=== PATIENT | male | born 1990 | race African-American/Black ===

== ENCOUNTER 2020-06-29 02:51 | Inpatient (IN) ==
[2020-06-29] MEDS ORDERED: SODIUM CHLORIDE 0.9% 500 ML IV STA (03:11)
[2020-06-29] MEDS ORDERED: ONDANSETRON 4 MG/2 ML VIAL IV STA (03:11)
[2020-06-29] MEDS ORDERED: KETOROLAC 30 MG/1 ML VIAL IV STA (03:11)
[2020-06-29 04:05] LABS: Basophils # 0.1 10*3/uL (0.0-0.2); Basophils % 0.4 % (0.0-0.8); Eosinophils # 0.2 10*3/uL (0.0-0.87); Eosinophils % 1.6 % (0.00-10.9); Hematocrit 33.4 VOL% (42.0-52.0); Hemoglobin 10.4 GM/DL (14.0-18.0); Immature Granulocytes % 0.3 %; Immature Granulocytes Absolute 0.04 #; Lymphocytes # 2.4 10*3/uL (1.4-4.0); Lymphocytes % 19.2 % (21.2-54.2); Mean Corpuscular HGB Conc 31.1 GM/DL (32-36); Mean Corpuscular Volume 67.2 FL (87-102); Mean Platelet Volume 9.8 FL (9.6-12.0); Monocytes % 6.9 % (1.7-12.7); Neutrophils % 71.6 % (38.7-73.9); Platelet Count 596 T/CUMM (130-400); Red Blood Count 4.97 MC/CUMM (3.8-5.5); Red Cell Distribution Width 19.4 % (9.3-17.3); White Blood Count 12.7 T/CUMM (4-12)
[2020-06-29 04:21] LABS: Alanine Aminotransferase 24 U/L (16-61); Alkaline Phosphatase 182 U/L (45-117); Amylase 14 U/L (25-115); Aspartate Amino Transferase 20 U/L (0-37); Bilirubin,Total < 0.39 MG/DL (0.2-1.0); Blood Urea Nitrogen 8 MG/DL (7-18); Carbon Dioxide 27 MMOL/L (21-32); Estimated Glom Filtration Rate 157 ML/MIN; Glucose 118 MG/DL (74-106); Potassium 3.8 MMOL/L (3.5-5.1); Sodium 136 MMOL/L (136-145); Troponin I < 0.015 NG/ML (0.00-0.045)
[2020-06-29 05:10] LABS: Amorphous Crystals,Urine Few /HPF (Few); Bilirubin,Urine Negative (Negative); Blood, Urine Moderate mg/dL (Negative); Glucose,Urine (UA) Negative (Negative); Ketones,Urine Negative (Negative); Mucus,Urine Occasional /LPF (Occasional); Nitrite,Urine Negative (Negative); Protein,Urine Negative; RBC,Urine 118 /HPF (0-4); Urine Appearance CLOUDY (Clear); Urine Color Yellow (Yellow); Urine Specific Gravity 1.015 (1.001-1.035)
[2020-06-29 05:12] LABS: Barbiturates Screen,Urine Positive (Negative); Benzodiazepines Screen,Urine Negative (Negative); Cannabinoid Screen,Urine Negative (Negative); Opiate Screen,Urine Negative (Negative); Phencyclidine Screen,Urine Negative (Negative)
[2020-06-29] MEDS ORDERED: hydrALAZINE 20 MG/1 ML VIAL ONE (05:35)
[2020-06-29] MEDS ORDERED: hydrALAZINE 20 MG/1 ML VIAL IV STA (05:36)
[2020-06-29] MEDS ORDERED: LABETALOL 20 MG/4 ML SYRINGE IV STA (05:45)
[2020-06-29] MEDS ORDERED: METHOCARBAMOL 1,000 MG/10 ML VIAL IV STA (06:04)
[2020-06-29] MEDS ORDERED: VANCOMYCIN INJ 1,000 MG in SODIUM CHLORIDE 0.9% 250 ML IV STA (06:57)
[2020-06-29] MEDS ORDERED: VANCOMYCIN 1,000 MG VIAL ONE (07:01)
[2020-06-29] MEDS ORDERED: ONDANSETRON 4 MG TABLET PO PRN (09:04)
[2020-06-29] MEDS ORDERED: DEXTROSE 50% 25 GM/50 ML VIAL IV PRN (09:05)
[2020-06-29] MEDS ORDERED: GLUCAGON 1 MG VIAL IM PRN (09:05)
[2020-06-29] MEDS ORDERED: ALBUTEROL/IPRATROPIUM 3 ML NEB RESP TX PRN (09:11)
[2020-06-29] MEDS: ENOXAPARIN 40 MG/0.4 ML SYRINGE SUBCUT SCH (09:44)
[2020-06-29 09:58] LABS: Immunoglobulin A 551 MG/DL (70-400); Immunoglobulin G 2020 MG/DL (700-1600); Immunoglobulin M 96 MG/DL (40-230)
[2020-06-29 10:24] LABS: HIV Antigen/Antibody Result Nonreactive (Nonreactive)
[2020-06-29] MEDS: MEROPENEM 500 MG in SODIUM CHLORIDE 0.9% 100 ML IV SCH ×2 (13:29→17:50)
[2020-06-29] MEDS: VANCOMYCIN INJ 1,000 MG in SODIUM CHLORIDE 0.9% 250 ML IV SCH (18:42)
[2020-06-29] MEDS: BUDESONIDE/FORMOTEROL 80-4.5 INHALER 6.9 GM INH SCH (21:19)
[2020-06-29] MEDS: DOCUSATE SODIUM 100 MG CAPSULE PO SCH (21:19)
[2020-06-30] MEDS: MEROPENEM 500 MG in SODIUM CHLORIDE 0.9% 100 ML IV SCH ×5 (00:20→23:45)
[2020-06-30 06:07] LABS: Basophils % 0.5 % (0.0-0.8); Eosinophils # 0.4 10*3/uL (0.0-0.87); Eosinophils % 4.4 % (0.00-10.9); Hematocrit 32.1 VOL% (42.0-52.0); Hemoglobin 9.9 GM/DL (14.0-18.0); Immature Granulocytes % 0.6 %; Immature Granulocytes Absolute 0.05 #; Lymphocytes # 2.2 10*3/uL (1.4-4.0); Lymphocytes % 24.9 % (21.2-54.2); Mean Corpuscular HGB Conc 30.8 GM/DL (32-36); Mean Corpuscular Volume 68.2 FL (87-102); Mean Platelet Volume 9.9 FL (9.6-12.0); Monocytes % 6.2 % (1.7-12.7); Neutrophils % 63.4 % (38.7-73.9); Platelet Count 560 T/CUMM (130-400); Red Blood Count 4.71 MC/CUMM (3.8-5.5); Red Cell Distribution Width 18.7 % (9.3-17.3); White Blood Count 8.7 T/CUMM (4-12)
[2020-06-30 06:41] LABS: Alanine Aminotransferase 17 U/L (16-61); Albumin 1.9 G/DL (3.4-5.0); Alkaline Phosphatase 149 U/L (45-117); Aspartate Amino Transferase 13 U/L (0-37); Bilirubin,Direct < 0.100 MG/DL (0.0-0.20); Bilirubin,Indirect 0.3 MG/DL (0.0-1.0); Blood Urea Nitrogen 9 MG/DL (7-18); Calcium 9.7 MG/DL (8.5-10.1); Carbon Dioxide 27 MMOL/L (21-32); Estimated Glom Filtration Rate 157 ML/MIN; Glucose 87 MG/DL (74-106); HDL Cholesterol 27 MG/DL (40-60); Osmolality,Calculated 272.7 MOS/KG (273-304); Potassium 3.9 MMOL/L (3.5-5.1); Risk Ratio 3.41; Sodium 138 MMOL/L (136-145); Total Protein 8.2 G/DL (6.4-8.3); Triglycerides 57 MG/DL (2-150); VLDL CHOLESTEROL 11.4 MG/DL
[2020-06-30] MEDS: ENOXAPARIN 40 MG/0.4 ML SYRINGE SUBCUT SCH (09:47)
[2020-06-30] MEDS: HYDROmorphone 2 MG/1 ML VIAL IV PRN ×4 (09:48→23:41)
[2020-06-30] MEDS: PANTOPRAZOLE 40 MG TABLET PO SCH (09:48)
[2020-06-30] MEDS: DOCUSATE SODIUM 100 MG CAPSULE PO SCH ×2 (09:49→21:08)
[2020-06-30] MEDS: VANCOMYCIN INJ 1,000 MG in SODIUM CHLORIDE 0.9% 250 ML IV SCH ×2 (11:26→18:32)
[2020-06-30] MEDS: BUDESONIDE/FORMOTEROL 80-4.5 INHALER 6.9 GM INH SCH ×3 (17:13→21:12)
[2020-07-01] MEDS: HYDROmorphone 2 MG/1 ML VIAL IV PRN ×5 (03:53→22:53)
[2020-07-01] MEDS: MEROPENEM 500 MG in SODIUM CHLORIDE 0.9% 100 ML IV SCH ×4 (05:17→23:45)
[2020-07-01] MEDS: VANCOMYCIN INJ 1,000 MG in SODIUM CHLORIDE 0.9% 250 ML IV SCH ×2 (06:02→18:44)
[2020-07-01 06:42] LABS: Basophils % 0.3 % (0.0-0.8); Eosinophils # 0.4 10*3/uL (0.0-0.87); Eosinophils % 4.6 % (0.00-10.9); Hemoglobin 9.9 GM/DL (14.0-18.0); Immature Granulocytes % 0.3 %; Immature Granulocytes Absolute 0.03 #; Lymphocytes # 2.6 10*3/uL (1.4-4.0); Lymphocytes % 27.5 % (21.2-54.2); Mean Corpuscular HGB Conc 30.9 GM/DL (32-36); Mean Corpuscular Volume 68.2 FL (87-102); Mean Platelet Volume 9.4 FL (9.6-12.0); Monocytes % 7.2 % (1.7-12.7); Neutrophils % 60.1 % (38.7-73.9); Platelet Count 567 T/CUMM (130-400); Red Blood Count 4.69 MC/CUMM (3.8-5.5); White Blood Count 9.6 T/CUMM (4-12)
[2020-07-01 06:58] LABS: Calcium 9.6 MG/DL (8.5-10.1); Osmolality,Calculated 266.2 MOS/KG (273-304); Potassium 3.7 MMOL/L (3.5-5.1)
[2020-07-01] MEDS: PANTOPRAZOLE 40 MG TABLET PO SCH (09:48)
[2020-07-01] MEDS: ENOXAPARIN 40 MG/0.4 ML SYRINGE SUBCUT SCH (09:48)
[2020-07-01] MEDS: DOCUSATE SODIUM 100 MG CAPSULE PO SCH ×2 (09:49→21:34)
[2020-07-01] MEDS ORDERED: INFLUENZA VIRUS VACCINE 0.5 ML SYRINGE IM ONE (12:31)
[2020-07-01] MEDS: BUDESONIDE/FORMOTEROL 80-4.5 INHALER 6.9 GM INH SCH ×2 (17:26→21:34)
[2020-07-02] MEDS: VANCOMYCIN INJ 1,000 MG in SODIUM CHLORIDE 0.9% 250 ML IV SCH ×3 (02:27→20:54)
[2020-07-02] MEDS: HYDROmorphone 2 MG/1 ML VIAL IV PRN ×4 (03:48→20:57)
[2020-07-02] MEDS: MEROPENEM 500 MG in SODIUM CHLORIDE 0.9% 100 ML IV SCH ×4 (05:08→23:08)
[2020-07-02 06:22] LABS: Basophils % 0.4 % (0.0-0.8); Eosinophils # 0.5 10*3/uL (0.0-0.87); Eosinophils % 5.9 % (0.00-10.9); Hematocrit 31.3 VOL% (42.0-52.0); Hemoglobin 9.7 GM/DL (14.0-18.0); Immature Granulocytes % 0.5 %; Immature Granulocytes Absolute 0.04 #; Lymphocytes # 2.4 10*3/uL (1.4-4.0); Lymphocytes % 31.4 % (21.2-54.2); Mean Corpuscular Volume 68.2 FL (87-102); Mean Platelet Volume 9.5 FL (9.6-12.0); Monocytes % 7.6 % (1.7-12.7); Neutrophils % 54.2 % (38.7-73.9); Platelet Count 595 T/CUMM (130-400); Red Blood Count 4.59 MC/CUMM (3.8-5.5); Red Cell Distribution Width 18.8 % (9.3-17.3); White Blood Count 7.7 T/CUMM (4-12)
[2020-07-02 06:33] LABS: Calcium 9.7 MG/DL (8.5-10.1)
[2020-07-02 07:03] LABS: Immunoglobulin A (Chem) 551 MG/DL (70-400); Immunoglobulin G (Chem) 2020 MG/DL (700-1600); Immunoglobulin M (Chem) 96 MG/DL (40-230)
[2020-07-02 07:04] LABS: Anisocytosis 1+; Hypochromasia 2+; Microcytosis 1+; Target Cells Slight
[2020-07-02 07:05] LABS: Platelet Estimate Increased
[2020-07-02] MEDS: BUDESONIDE/FORMOTEROL 80-4.5 INHALER 6.9 GM INH SCH ×2 (08:18→23:07)
[2020-07-02] MEDS: PANTOPRAZOLE 40 MG TABLET PO SCH (08:18)
[2020-07-02] MEDS: DOCUSATE SODIUM 100 MG CAPSULE PO SCH ×2 (08:18→20:55)
[2020-07-02] MEDS ORDERED: DIAZEPAM 5 MG TABLET PO ONE (09:38)
[2020-07-02 10:22] LABS: INR 1.2; PT Patient Result 12.3 SECS (9.8-11.9)
[2020-07-02] MEDS: ENOXAPARIN 40 MG/0.4 ML SYRINGE SUBCUT SCH (10:31)
[2020-07-02] MEDS ORDERED: LIDOCAINE 2% 5 ML VIAL ONE (11:59)
[2020-07-02] MEDS ORDERED: propofoL 200 MG/20 ML VIAL IV ONE (11:59)
[2020-07-02] MEDS: SODIUM CHLORIDE 0.9% 1,000 ML IV SCH (16:56)
[2020-07-03] MEDS: HYDROmorphone 2 MG/1 ML VIAL IV PRN ×6 (00:33→22:35)
[2020-07-03] MEDS: VANCOMYCIN INJ 1,000 MG in SODIUM CHLORIDE 0.9% 250 ML IV SCH ×3 (03:08→22:17)
[2020-07-03] MEDS: MEROPENEM 500 MG in SODIUM CHLORIDE 0.9% 100 ML IV SCH ×4 (05:16→17:13)
[2020-07-03] MEDS: DOCUSATE SODIUM 100 MG CAPSULE PO SCH ×2 (08:05→22:18)
[2020-07-03] MEDS: ENOXAPARIN 40 MG/0.4 ML SYRINGE SUBCUT SCH ×2 (08:06→09:33)
[2020-07-03] MEDS: PANTOPRAZOLE 40 MG TABLET PO SCH (08:06)
[2020-07-03] MEDS: BUDESONIDE/FORMOTEROL 80-4.5 INHALER 6.9 GM INH SCH ×2 (08:08→22:37)
[2020-07-03] MEDS: SODIUM CHLORIDE 0.9% 1,000 ML IV SCH (11:17)
[2020-07-04] MEDS: MEROPENEM 500 MG in SODIUM CHLORIDE 0.9% 100 ML IV SCH ×4 (00:39→18:29)
[2020-07-04] MEDS: HYDROmorphone 2 MG/1 ML VIAL IV PRN ×5 (03:12→20:47)
[2020-07-04] MEDS: VANCOMYCIN INJ 1,000 MG in SODIUM CHLORIDE 0.9% 250 ML IV SCH ×3 (03:13→20:41)
[2020-07-04 06:19] LABS: Basophils # 0.1 10*3/uL (0.0-0.2); Basophils % 0.7 % (0.0-0.8); Eosinophils # 0.4 10*3/uL (0.0-0.87); Eosinophils % 4.7 % (0.00-10.9); Hematocrit 33.9 VOL% (42.0-52.0); Hemoglobin 10.2 GM/DL (14.0-18.0); Immature Granulocytes % 0.7 %; Immature Granulocytes Absolute 0.06 #; Lymphocytes # 2.5 10*3/uL (1.4-4.0); Lymphocytes % 27.6 % (21.2-54.2); Mean Corpuscular HGB Conc 30.1 GM/DL (32-36); Mean Corpuscular Volume 68.9 FL (87-102); Mean Platelet Volume 9.3 FL (9.6-12.0); Monocytes % 8.8 % (1.7-12.7); Neutrophils % 57.5 % (38.7-73.9); Platelet Count 688 T/CUMM (130-400); Red Blood Count 4.92 MC/CUMM (3.8-5.5); Red Cell Distribution Width 19.1 % (9.3-17.3)
[2020-07-04 06:41] LABS: Calcium 9.5 MG/DL (8.5-10.1); Osmolality,Calculated 270.8 MOS/KG (273-304); Potassium 4.1 MMOL/L (3.5-5.1)
[2020-07-04 06:49] LABS: Hypochromasia 1+; Platelet Estimate Increased
[2020-07-04 06:50] LABS: Microcytosis Slight
[2020-07-04] MEDS: DOCUSATE SODIUM 100 MG CAPSULE PO SCH ×2 (09:04→20:41)
[2020-07-04] MEDS: ENOXAPARIN 40 MG/0.4 ML SYRINGE SUBCUT SCH (09:04)
[2020-07-04] MEDS: PANTOPRAZOLE 40 MG TABLET PO SCH (09:04)
[2020-07-04 10:10] LABS: Sedimentation Rate-Westergren 78 MM/HR (0-15)
[2020-07-04] MEDS: BUDESONIDE/FORMOTEROL 80-4.5 INHALER 6.9 GM INH SCH (10:15)
[2020-07-04] MEDS: SODIUM CHLORIDE 0.9% 1,000 ML IV SCH (19:00)
[2020-07-05] MEDS: MEROPENEM 500 MG in SODIUM CHLORIDE 0.9% 100 ML IV SCH ×2 (00:46→06:14)
[2020-07-05] MEDS: HYDROmorphone 2 MG/1 ML VIAL IV PRN ×6 (00:47→21:06)
[2020-07-05] MEDS: VANCOMYCIN INJ 1,000 MG in SODIUM CHLORIDE 0.9% 250 ML IV SCH ×3 (04:10→21:23)
[2020-07-05] MEDS: BUDESONIDE/FORMOTEROL 80-4.5 INHALER 6.9 GM INH SCH ×2 (05:31→09:29)
[2020-07-05] MEDS: ENOXAPARIN 40 MG/0.4 ML SYRINGE SUBCUT SCH (09:29)
[2020-07-05] MEDS: DOCUSATE SODIUM 100 MG CAPSULE PO SCH ×2 (09:29→21:25)
[2020-07-05] MEDS: PANTOPRAZOLE 40 MG TABLET PO SCH (09:29)
[2020-07-06] MEDS: HYDROmorphone 2 MG/1 ML VIAL IV PRN ×6 (01:29→22:16)
[2020-07-06] MEDS: BUDESONIDE/FORMOTEROL 80-4.5 INHALER 6.9 GM INH SCH ×3 (03:32→21:14)
[2020-07-06] MEDS: VANCOMYCIN INJ 1,000 MG in SODIUM CHLORIDE 0.9% 250 ML IV SCH (05:50)
[2020-07-06] MEDS: DOCUSATE SODIUM 100 MG CAPSULE PO SCH ×2 (09:11→21:09)
[2020-07-06] MEDS: ENOXAPARIN 40 MG/0.4 ML SYRINGE SUBCUT SCH (09:11)
[2020-07-06] MEDS: PANTOPRAZOLE 40 MG TABLET PO SCH (09:11)
[2020-07-07] MEDS: HYDROmorphone 2 MG/1 ML VIAL IV PRN ×6 (02:10→21:36)
[2020-07-07] MEDS: ENOXAPARIN 40 MG/0.4 ML SYRINGE SUBCUT SCH (10:24)
[2020-07-07] MEDS: DOCUSATE SODIUM 100 MG CAPSULE PO SCH ×2 (10:24→21:35)
[2020-07-07] MEDS: PANTOPRAZOLE 40 MG TABLET PO SCH (10:24)
[2020-07-07] MEDS: BUDESONIDE/FORMOTEROL 80-4.5 INHALER 6.9 GM INH SCH ×3 (11:15→21:36)
[2020-07-08] MEDS: HYDROmorphone 2 MG/1 ML VIAL IV PRN ×6 (01:14→20:57)
[2020-07-08 06:09] LABS: Basophils # 0.1 10*3/uL (0.0-0.2); Eosinophils # 0.6 10*3/uL (0.0-0.87); Eosinophils % 7.7 % (0.00-10.9); Hematocrit 32.3 VOL% (42.0-52.0); Immature Granulocytes % 0.4 %; Immature Granulocytes Absolute 0.03 #; Lymphocytes # 2.8 10*3/uL (1.4-4.0); Lymphocytes % 39.3 % (21.2-54.2); Mean Corpuscular Volume 66.6 FL (87-102); Mean Platelet Volume 9.4 FL (9.6-12.0); Monocytes % 8.7 % (1.7-12.7); Neutrophils % 42.9 % (38.7-73.9); Platelet Count 672 T/CUMM (130-400); Red Blood Count 4.85 MC/CUMM (3.8-5.5); Red Cell Distribution Width 18.9 % (9.3-17.3); White Blood Count 7.1 T/CUMM (4-12)
[2020-07-08 06:26] LABS: Calcium 9.9 MG/DL (8.5-10.1); Osmolality,Calculated 270.1 MOS/KG (273-304); Potassium 3.7 MMOL/L (3.5-5.1)
[2020-07-08 07:49] LABS: Eosinophils 7 % (0-10); Lymphocytes 46 % (20-55); Platelet Estimate Increased; Segmented Neutrophils 42 % (50-85); Total Cells Counted 100
[2020-07-08 07:50] LABS: Anisocytosis 2+; Hypochromasia 2+; Macrocytosis 2+; Ovalocytes 1+; Polychromasia Few; Target Cells 2+
[2020-07-08] MEDS: DOCUSATE SODIUM 100 MG CAPSULE PO SCH ×2 (09:34→20:57)
[2020-07-08] MEDS: ENOXAPARIN 40 MG/0.4 ML SYRINGE SUBCUT SCH (09:34)
[2020-07-08] MEDS: PANTOPRAZOLE 40 MG TABLET PO SCH (09:34)
[2020-07-08] MEDS: BUDESONIDE/FORMOTEROL 80-4.5 INHALER 6.9 GM INH SCH ×2 (09:37→21:16)
[2020-07-09] MEDS: HYDROmorphone 2 MG/1 ML VIAL IV PRN ×6 (00:08→20:50)
[2020-07-09 04:35] LABS: Basophils # 0.1 10*3/uL (0.0-0.2); Basophils % 0.7 % (0.0-0.8); Eosinophils # 0.5 10*3/uL (0.0-0.87); Hematocrit 33.3 VOL% (42.0-52.0); Immature Granulocytes % 0.2 %; Immature Granulocytes Absolute 0.02 #; Lymphocytes # 2.9 10*3/uL (1.4-4.0); Lymphocytes % 35.9 % (21.2-54.2); Mean Corpuscular Volume 67.8 FL (87-102); Mean Platelet Volume 9.1 FL (9.6-12.0); Monocytes % 7.7 % (1.7-12.7); Neutrophils % 49.5 % (38.7-73.9); Platelet Count 655 T/CUMM (130-400); Red Blood Count 4.91 MC/CUMM (3.8-5.5); Red Cell Distribution Width 18.7 % (9.3-17.3); White Blood Count 8.2 T/CUMM (4-12)
[2020-07-09 04:57] LABS: Eosinophils 7 % (0-10); Hypochromasia 1+; Lymphocytes 27 % (20-55); Microcytosis 1+; Platelet Estimate Increased; Segmented Neutrophils 56 % (50-85); Total Cells Counted 100
[2020-07-09 05:06] LABS: Calcium 9.8 MG/DL (8.5-10.1); Osmolality,Calculated 275.7 MOS/KG (273-304); Potassium 3.7 MMOL/L (3.5-5.1)
[2020-07-09] MEDS: DOCUSATE SODIUM 100 MG CAPSULE PO SCH ×2 (08:15→20:51)
[2020-07-09] MEDS: ENOXAPARIN 40 MG/0.4 ML SYRINGE SUBCUT SCH ×2 (08:15→10:01)
[2020-07-09] MEDS: PANTOPRAZOLE 40 MG TABLET PO SCH (08:15)
[2020-07-09] MEDS: BUDESONIDE/FORMOTEROL 80-4.5 INHALER 6.9 GM INH SCH ×2 (08:16→20:51)
[2020-07-09] MEDS ORDERED: INFLUENZA VIRUS VACCINE 0.5 ML SYRINGE IM ONE (09:00)
[2020-07-09] MEDS: METOPROLOL TARTRATE 100 MG TABLET PO SCH ×2 (17:49→20:51)
[2020-07-10] MEDS: HYDROmorphone 2 MG/1 ML VIAL IV PRN ×4 (01:05→13:57)
[2020-07-10] MEDS: PANTOPRAZOLE 40 MG TABLET PO SCH (09:31)
[2020-07-10] MEDS: METOPROLOL TARTRATE 100 MG TABLET PO SCH (09:31)
[2020-07-10] MEDS: DOCUSATE SODIUM 100 MG CAPSULE PO SCH (09:31)
[2020-07-10] MEDS: BUDESONIDE/FORMOTEROL 80-4.5 INHALER 6.9 GM INH SCH (09:33)
[2020-07-10] MEDS: ENOXAPARIN 40 MG/0.4 ML SYRINGE SUBCUT SCH (10:10)
[2020-07-10 17:08] VITALS: BP 150/96
== END 2020-07-10 18:55 | disposition home or self-care (01) | DRG 347 ==
LOC: EDUNIT# → EDBD → N.ED 02:51 → SUATTDRO 09:05 → N.EDINP 09:05 → N.3E 09:48
PROVIDERS: ADMIT Internal Medicine; ATTEND Internal Medicine